=== PATIENT | male | born 1965 | race African-American/Black ===

== ENCOUNTER 2025-05-30 17:10 | Emergency (ER) | payer BC ==
[~2025-05-30] VITALS: Ht 180.3 cm; Wt 104.8 kg
[2025-05-30 17:28] VITALS: TEMP 98.3
[2025-05-30] MEDS ORDERED: ONDANSETRON HCL/PF 4 MG/2 ML VIAL ONE (18:30)
[2025-05-30] MEDS ORDERED: MORPHINE SULFATE INJ 4 MG/ML DISP.SYRIN ONE (18:30)
[2025-05-30] MEDS: MORPHINE SULFATE INJ 2 MG/ML DISP.SYRIN IV ONE (18:40)
[2025-05-30] MEDS: ONDANSETRON HCL/PF 4 MG/2 ML VIAL IVP ONE (18:40)
[2025-05-30] MEDS ORDERED: IBUP-1490 PO (20:08)
[2025-05-30] MEDS ORDERED: HYDROCODONE/APAP 5/325MG TABLET ONE (20:08)
[2025-05-30] MEDS ORDERED: KETOROLAC TROMETHAMINE 15 MG/ML VIAL ONE (20:08)
[2025-05-30] MEDS ORDERED: HYDR-3972 PO (20:08)
[2025-05-30] MEDS: HYDROCODONE/APAP 5/325MG TABLET PO ONE (20:15)
[2025-05-30] MEDS: KETOROLAC TROMETHAMINE 15 MG/ML VIAL IV ONE (20:15)
[2025-05-30 21:15] VITALS: BP 135/98; O2SAT 96
== END 2025-05-30 20:30 | disposition home or self-care (01) ==
LOC: ER 17:21
DX: S82.092A Other fracture of left patella, initial encounter for closed fracture (principal); K21.9 Gastro-esophageal reflux disease without esophagitis; V23.09XA Other motorcycle driver injured in collision with car, pick-up truck or van in nontraffic accident, initial encounter; Y93.89 Activity, other specified; Y92.488 Other paved roadways as the place of occurrence of the external cause; Y99.8 Other external cause status
CPT/HCPCS: 29505; 73110; 73552; 73564; 73590; 73630; 96374; 96375; 99284; J1885; J2270; J2405